=== PATIENT | male | born 1995 | race Hispanic/Latino ===

== ENCOUNTER 2020-06-15 06:03 | Emergency (ER) | payer BC ==
[~2020-06-15] VITALS: Ht 180.3 cm; Wt 113.4 kg
[2020-06-15] MEDS ORDERED: KETOROLAC TROMETHAMINE 30 MG/ML VIAL IV STA (06:12)
[2020-06-15] MEDS ORDERED: SODIUM CHLORIDE 0.9% 1000ML 1,000 ML IV STA (06:12)
[2020-06-15] MEDS ORDERED: ONDANSETRON HCL INJ 2MG/ML 2ML 2 MG/ML VIAL IV STA (06:12)
[2020-06-15 06:27] LABS: BASOPHILS % 0.2 % (0.0-1.0); EOSINOPHILS # (AUTO) 0.1 (0.0-0.4); EOSINOPHILS % 1.1 % (0.0-6.0); HEMATOCRIT 46.9 % (38.2-49.6); HEMOGLOBIN 15.7 g/dL (14.0-18.0); LYMPHOCYTES # (AUTO) 2.3 (1.0-3.2); LYMPHOCYTES % 19.4 % (18.0-39.1); MEAN CORPUSCULAR HGB CONC 33.5 g/dL (31-35); MEAN CORPUSCULAR VOLUME 86.7 fL (81-99); MONOCYTES # (AUTO) 0.7 (0.2-0.8); NEUTROPHILS # (AUTO) 8.5 (2.1-6.9); NEUTROPHILS % 72.8 % (38.7-80.0); PLATELET COUNT 299 x10e3/uL (140-360); RED BLOOD COUNT 5.41 x10e6/uL (4.3-5.7); RED CELL DISTRIBUTION WIDTH 12.8 % (11.7-14.4)
[2020-06-15 06:33] LABS: CLARITY,URINE CLEAR (CLEAR); COLOR,URINE YELLOW (YELLOW)
[2020-06-15 06:34] LABS: BILIRUBIN,URINE NEGATIVE (NEGATIVE); KETONES,URINE NEGATIVE (NEGATIVE); LEUKOCYTE ESTERASE ,URINE NEGATIVE (NEGATIVE); NITRITE,URINE NEGATIVE (NEGATIVE); PROTEIN,URINE DIPSTICK NEGATIVE (NEGATIVE); URINE UROBILINOGEN 0.2 mg/dL (0.2 - 1)
[2020-06-15 06:42] LABS: BACTERIA,URINE FEW /HPF; EPITHELIAL CELLS,URINE FEW /LPF; MUCUS,URINE FEW (RARE); WBC,URINE (MAN) 0-5 /HPF (0-5)
[2020-06-15 06:42] LABS: ANION GAP 11.6 mmol/L (8-16); BLOOD UREA NITROGEN 12 mg/dL (7-26); CARBON DIOXIDE 27 mmol/L (22-29); CHLORIDE 104 mmol/L (98-107); CREATININE, SERUM 0.87 mg/dL (0.72-1.25); POTASSIUM 3.6 mmol/L (3.5-5.1); SODIUM 139 mmol/L (136-145)
[2020-06-15 06:43] LABS: ALANINE AMINOTRANSFERASE 36 IU/L (0-55); ALBUMIN 4.5 g/dL (3.5-5.0); ALBUMIN/GLOBULIN RATIO 1.2 (0.8-2.0); ALKALINE PHOSPHATASE 91 IU/L (40-150); BUN/CREATININE RATIO 14 (6-25); CALCIUM 9.3 mg/dL (8.4-10.2); EST GLOMERULAR FILTRATION RATE > 60 ML/MIN (60-); GLUCOSE 100 mg/dL (74-118)
--- NOTE | 2020-06-15 06:52 | NUR ---
Report to LORRAINE Bey
--- NOTE | 2020-06-15 06:53 | Emergency Department Note ---
History of Present Illnes History of Present Illness Chief Complaint: Abdominal Complaints History of Present Illness This is a 25 year old male 25 Y/O MALE PT AAOX3 PRESENTS TO THE ER C/O INTERMITTENT LT SIDE PAIN FOR THE PAST X2 DAYS; PT ALSO REPORTS NAUSEA AND FEVER YESTERDAY; PT DENIES VOMITTING OR DIARRHEA; PT DENIES BURNING WITH URINATION OR DYSURIA. Historian: Patient Arrival Mode: Car Sba Underwriter Required: No Onset (how long ago): day(s) (2) Location: left flank Quality: sharp pain Radiation: Reports non-radiation Severity: severe Onset quality: sudden Timing of current episode: intermittent Progression: waxing and waning Chronicity: new Context: Denies recent illness Relieving factors: none Exacerbating factors: none Associated symptoms: Reports denies other symptoms Past Medical/Family History Physician Review I have reviewed the patient's past medical and family history. Any updates have been documented here. Past Medical History Recent Fever: Yes (SUBJECTIVE) Clinical Suspicion of Infectio: No New/Unexplained Change in Ment: No Past Medical History: Hypertension Past Surgical History: None Social History Smoking Cessation: Unknown if ever smoked Counseling Performed: No Alcohol Use: None Any Illegal Drug Use: No TB Exposure/Symptoms: No Physically hurt or threatened: No Family History Family history of heart diseas: No Other Any Pre-Existing Lines (PICC,: No Review of Systems Review of Systems Constitutional: Reports no symptoms EENTM: Reports no symptoms Cardiovascular: Reports no symptoms Respiratory: Reports no symptoms Gastrointestinal: Reports no symptoms Genitourinary: Reports as per HPI Musculoskeletal: Reports no symptoms Integumentary: Reports no symptoms Neurological: Reports no symptoms Psychological: Reports no symptoms Endocrine: Reports no symptoms Hematological/Lymphatic: Reports no symptoms Physical Exam Related Data Allergies: Coded Allergies: No Known Allergies (Unverified , 06/15/20) Triage Vital Signs Vital Signs Date Time Temp Pulse Resp B/P (MAP) Pulse Ox O2 Delivery O2 Flow Rate FiO2 06/15/20 06:07 98.9 90 18 152/105 100 Room Air Vital signs reviewed: Yes Physical Exam CONSTITUTIONAL Constitutional: Present well-developed, Present well-nourished HENT HENT: Present normocephalic, Present atraumatic, Present oropharynx clear/moist, Present nose normal HENT L/R: Present left ext ear normal, Present right ext ear normal EYES Eyes: Reports PERRL, Reports conjunctivae normal NECK Neck: Present ROM normal PULMONARY Pulmonary: Present effort normal, Present breath sounds normal CARDIOVASCULAR Cardiovascular: Present regular rhythm, Present heart sounds normal, Present capillary refill normal, Present normal rate GASTROINTESTINAL Abdominal: Present soft, Present nontender, Present bowel sounds normal; Absent left CVA tenderness, Absent right CVA tenderness GENITOURINARY Genitourinary: Present exam deferred SKIN Skin: Present warm, Present dry MUSCULOSKELETAL Musculoskeletal: Present ROM normal NEUROLOGICAL Neurological: Present alert, Present oriented x 3, Present no gross motor or sensory deficits PSYCHOLOGICAL Psychological: Present mood/affect normal, Present judgement normal Results Laboratory Result Diagram: 06/15/20 0611 06/15/20 0611 Laboratory Laboratory Tests Test 06/15/20 06:11 06/15/20 06:09 White Blood Count 11.72 x10e3/uL (4.8-10.8) Red Blood Count 5.41 x10e6/uL (4.3-5.7) Hemoglobin 15.7 g/dL (14.0-18.0) Hematocrit 46.9 % (38.2-49.6) Mean Corpuscular Volume 86.7 fL (81-99) Mean Corpuscular Hemoglobin 29.0 pg (28-32) Mean Corpuscular Hemoglobin Concent 33.5 g/dL (31-35) Red Cell Distribution Width 12.8 % (11.7-14.4) Platelet Count 299 x10e3/uL (140-360) Neutrophils (%) (Auto) 72.8 % (38.7-80.0) Lymphocytes (%) (Auto) 19.4 % (18.0-39.1) Monocytes (%) (Auto) 6.0 % (4.4-11.3) Eosinophils (%) (Auto) 1.1 % (0.0-6.0) Basophils (%) (Auto) 0.2 % (0.0-1.0) Neutrophils # (Auto) 8.5 (2.1-6.9) Lymphocytes # (Auto) 2.3 (1.0-3.2) Monocytes # (Auto) 0.7 (0.2-0.8) Eosinophils # (Auto) 0.1 (0.0-0.4) Basophils # (Auto) 0.0 (0.0-0.1) Absolute Immature Granulocyte (auto 0.06 x10e3/uL (0-0.1) Sodium Level 139 mmol/L (136-145) Potassium Level 3.6 mmol/L (3.5-5.1) Chloride Level 104 mmol/L (98-107) Carbon Dioxide Level 27 mmol/L (22-29) Anion Gap 11.6 mmol/L (8-16) Blood Urea Nitrogen 12 mg/dL (7-26) Creatinine 0.87 mg/dL (0.72-1.25) Estimat Glomerular Filtration Rate > 60 ML/MIN (60-) BUN/Creatinine Ratio 14 (6-25) Glucose Level 100 mg/dL (74-118) Calcium Level 9.3 mg/dL (8.4-10.2) Total Bilirubin 0.6 mg/dL (0.2-1.2) Aspartate Amino Transf (AST/SGOT) 18 IU/L (5-34) Alanine Aminotransferase (ALT/SGPT) 36 IU/L (0-55) Alkaline Phosphatase 91 IU/L (40-150) Total Protein 8.2 g/dL (6.5-8.1) Albumin 4.5 g/dL (3.5-5.0) Globulin 3.7 g/dL (2.3-3.5) Albumin/Globulin Ratio 1.2 (0.8-2.0) Urine Color Yellow (YELLOW) Urine Clarity Clear (CLEAR) Urine pH 5.5 (5 - 7) Urine Specific [place] >=1.030 (1.010-1.025) Urine Protein Negative (NEGATIVE) Urine Glucose (UA) Negative (NEGATIVE) Urine Ketones Negative (NEGATIVE) Urine Blood Moderate (NEGATIVE) Urine Nitrite Negative (NEGATIVE) Urine Bilirubin Negative (NEGATIVE) Urine Urobilinogen 0.2 mg/dL (0.2 - 1) Urine Leukocyte Esterase Negative (NEGATIVE) Urine RBC 11-20 /HPF (0-5) Urine WBC 0-5 /HPF (0-5) Urine Epithelial Cells Few /LPF (NONE) Urine Bacteria Few /HPF (NONE) Urine Mucus Few (RARE) Lab results reviewed: Yes Imaging Imaging results reviewed: Yes Assessment & Plan Medical Decision Making MDM left flank pain - CBC, CHEM, UA, CT ABD/PELVIS - R/O KIDNEY STONE, UTI, PYELONEPHRITIS, MUSCULOSKELETAL PAIN, MASS. Reassessment Reassessment dc home, flomax, toradol, zofran, tyl #3. Strain all urine, push po fluids. F/U Dr Curtis, Dr Prasad Assessment & Plan Final Impression: (1) Ureterolithiasis Depart Disposition: HOME, SELF-CARE Last Vital Signs Date Time Temp Pulse Resp B/P (MAP) Pulse Ox O2 Delivery O2 Flow Rate FiO2 06/15/20 06:39 76 20 146/85 99 Room Air 06/15/20 06:07 98.9 Medications in the ED Ondansetron HCl 4 mg ONCE STAT IV Last administered on 06/15/20at 06:30; Admin Dose 4 MG; Start 06/15/20 at 06:12; Stop 06/15/20 at 06:17; Status DC Ketorolac Tromethamine 30 mg ONCE STAT IV Last administered on 06/15/20at 06:30; Admin Dose 30 MG; Start 06/15/20 at 06:12; Stop 06/15/20 at 06:17; Status DC Sodium Chloride 1,000 ml @ 0 mls/hr Q0M STAT IV Last administered on 06/15/20at 06:30; Admin Dose 999 MLS/HR; Start 06/15/20 at 06:12; Stop 06/15/20 at 06:15; Status DC LIBORIO JENSEN MD Jun 15, 2020 06:52
--- NOTE | 2020-06-15 07:39 | Diagnostic Imaging Report ---
EXAM: CT Abdomen and Pelvis WITHOUT contrast INDICATION: Left-sided abdominal pain, query kidney stone. COMPARISON: None. TECHNIQUE: Abdomen and pelvis were scanned utilizing a multidetector helical scanner from the lung base to the pubic symphysis without administration of IV contrast. Absence of intravenous contrast decreases sensitivity for detection of focal lesions and vascular pathology. Coronal and sagittal reformations were obtained. Stone protocol is performed. IV CONTRAST: None. ORAL CONTRAST: None. RADIATION DOSE: Total DLP: 774 mGy*cm Estimated effective dose: (DLP x 0.015 x size factor) mSv COMPLICATIONS: None FINDINGS: LINES and TUBES: None. LOWER THORAX: Unremarkable HEPATOBILIARY: No focal hepatic lesions. No biliary ductal dilation. GALLBLADDER: No radio-opaque stones or sludge. No wall thickening. SPLEEN: No splenomegaly. PANCREAS: No focal masses or ductal dilatation. ADRENALS: No adrenal nodules KIDNEYS/URETERS: There is a 3 mm left proximal ureteral stone with minimal left hydronephrosis and trace perinephric stranding. GI TRACT: No abnormal distention, wall thickening, or evidence of bowel obstruction. Appendix is normal. PELVIC ORGANS/BLADDER: Bladder is partially decompressed. LYMPH NODES: No lymphadenopathy. VESSELS: Unremarkable. PERITONEUM / RETROPERITONEUM: No free air or fluid. BONES: Unremarkable. SOFT TISSUES: Bilateral fat-containing inguinal hernias. IMPRESSION: A 3 mm proximal left ureteral stone with minimal left hydronephrosis. Signed by: Dr. Sarita Alvarado MD on 06/15/2020 7:36 AM
[2020-06-15 07:45] VITALS: BP 137/78
== END 2020-06-15 07:59 | disposition home or self-care (01) ==
LOC: ER 06:14
DX: N13.2 Hydronephrosis with renal and ureteral calculous obstruction (principal); M54.5 Low back pain; R50.9 Fever, unspecified; R11.0 Nausea; I10 Essential (primary) hypertension
CPT/HCPCS: 36415; 74176; 80053; 81001; 85025; 87086; 99284; J1885; J2405; J7030

== ENCOUNTER 2020-06-16 12:04 | Emergency (ER) | payer BC ==
[~2020-06-16] VITALS: Ht 180.3 cm; Wt 113.4 kg
--- OUTSIDE RECORDS SUMMARY | 2020-06-16 12:38 | XMS REPORT | Continuity of Care Document ---
Author Author [facility] Organization [facility] Address [address] [place] [address] Phone Unavailable Care Team Providers Care Desk Assistant Name Role Phone NO, PCP PCP Unavailable Celeste JENSEN Attphys Unavailable Payers Payer Name Policy Type Policy Number Effective Date Expiration Date S joseph [employer] Ppo [id number] [facility] I [facility] Problems Condition Name Condition Details Condition Category Status Onset Date Resolution Date Last Treatment Date Treating Clinician Comments Source Calculus of ureter Problem Active [facility] Allergies, Adverse Reactions, Alerts This patient has no known allergies or adverse reactions. Social History Social Habit Start Date Stop Date Quantity Comments Source Sex Assigned At 1995 00:00:00 1995 00:00:00 Male [facility] Medications This patient has no known medications. Vital Signs Vital Name Observation Time Observation Value Comments Source Body Temperature 2020-06-15 07:45:00 98.0 [degF] [facility] Weight 2020-06-15 06:07:00 250 [lb_av] [facility] BMI (Body Mass Index) 2020-06-15 06:07:00 34.9 kg/m2 [facility] Procedures Procedure Date / Time Performed Performing Clinician Callum mcdonald CT of abdomen and pelvis without contrast 2020-06-15 00:00:00 [facility] Plan of Care Planned Activity Planned Date Details Comments Source Instructions Kidney Stones [facility] Encounters Start Date/Time End Date/Time Encounter Type Admission Type Attendi [facility] Care Department Encounter ID Source 2020-06-15 06:14:00 2020-06-15 07:59:00 Departed Emergency Room 1 LIBORIO JENSEN [facility] [id number] [facility] Results Test Description Test Time Test Comments Results Result Comments Source CT ABDOMEN/PELVIS WO 2020-06-15 07:30:00 [facility] [address] [address] Patient Name: SKYLAR NUÑEZ JR MR #: [id number] : 1995 Age/Sex: 25/M Req #: [id number] Adm Physician: Ordered by: LIBORIO JENSEN MD Report #: [id number] Location: ER Room/Bed: Procedure: [id number] CT/CT ABDOMEN/PELVIS WO Exam Date: 06/15/20 Exam Time: 0650 REPORT STATUS: Signed EXAM: CT Abdomen and Pelvis WITHOUT contrast INDICATION: Left-sided abdominal pain, query kidney stone. COMPARISON: None. TECHNIQUE: Abdomen and pelvis were scanned utilizing a multidetector helical scanner from the lung base to the pubic symphysis without administration of IV contrast. Absence of intravenous contrast decreases sensitivity for detection of focal lesions and vascular pathology. Coronal and sagittal reformations were obtained. Stone protocol is performed. IV CONTRAST: None. ORAL CONTRAST: None. RADIATION DOSE: Total DLP: 774 mGy*cm Estimated effective dose: (DLP x 0.015 x size factor) mSv COMPLICATIONS: None FINDINGS: LINES and TUBES: None. LOWER THORAX: Unremarkable HEPATOBILIARY: No focal hepatic lesions. No biliary ductal dilation. GALLBLADDER: No radio-opaque stones or sludge. No wall thickening. SPLEEN: No splenomegaly. PANCREAS: No focal masses or ductal dilatation. ADRENALS: No adrenal nodules KIDNEYS/URETERS: There is a 3 mm left proximal ureteral stone with minimal left hydronephrosis and trace perinephric stranding. GI TRACT: No abnormal distention, wall thickening, or evidence of bowel obstruction. Appendix is normal. PELVIC ORGANS/BLADDER: Bladder is partially decompressed. LYMPH NODES: No lymphadenopathy. VESSELS: Unremarkable. PERITONEUM / RETROPERITONEUM: No free air or fluid. BONES: Unremarkable. SOFT TISSUES: Bilateral fat-containing inguinal hernias. IMPRESSION: A 3 mm proximal left ureteral stone with minimal left hydronephrosis. Signed by: Dr. Kallie Cross MD on 06/15/2020 7:36 AM Dictated By: KALLIE CROSS MD 5 Transcribed By: AMAIRANI on 06/15/20735 COPY TO: LIBORIO JENSEN MD Blood leukocytes automated count (number/volume) 2020-06-15 06:11:00 Test Item White Blood Count (test code = 6690-2) 11.72 4.8-10.8 [facility] automated count (number/volume)2020-06-15 06:11:00* Test Item Value Reference Range Interpretation Comments Red Blood Count (test code = 789-8) 5.41 4.3-5.7 [facility] hemoglobin measurement (moles/volume)2020-06-15 06:11:00* Test Item Value Reference Range Interpretation Comments Hemoglobin (test code = 60109-0) 15.7 14.0-18.0 [facility] CenterAutomated blood hematocrit (volume fraction)2020-06-15 06:11:00* Test Item Value Reference Range Interpretation Comments Hematocrit (test code = 4544-3) 46.9 38.2-49.6 [facility] CenterAutomated erythrocyte mean corpuscular [id number] 06:11:00* Test Item Value Reference Range Interpretation Comments Mean Corpuscular Volume (test code = 787-2) 86.7 81-99 [facility] CenterAutomated erythrocyte mean corpuscular hemoglobin (mass per erythrocyte)2020-06-15 06:11:00* Test Item Value Reference Range Interpretation Comments Mean Corpuscular Hemoglobin (test code = 785-6) 29.0 28-32 [facility] CenterAutomated erythrocyte mean corpuscular hemoglobin concentration measurement (mass/volume)2020-06-15 06:11:00* Test Item Value Reference Range Interpretation Comments Mean Corpuscular Hemoglobin Concent (test code = 786-4) 33.5 31-35 [facility] CenterRDW HbeMy-Esp9591-18-27 06:11:00* Test Item Value Reference Range Interpretation Comments Red Cell Distribution Width (test code = 10622-7) 12.8 11.7 -14.4 [facility] CenterAutomated blood platelet count (count/volume)2020-06-15 06:11:00* Test Item Value Reference Range Interpretation Comments Platelet Count (test code = 777-3) 299 140-360 [facility] CenterAutomated blood segmented neutrophil count as percentage of total apcebhvjam0685-57-09 06:11:00* Test Item Value Reference Range Interpretation Comments Neutrophils (%) (Auto) (test code = 48150-4) 72.8 38.7-80.0 [facility] CenterAutomated blood lymphocyte count as percentage ot total rhtfuqoibz4969-10-57 06:11:00* Test Item Value Reference Range Interpretation Comments Lymphocytes (%) (Auto) (test code = 736-9) 19.4 18.0-39.1 [facility] CenterAutomated blood monocyte count as percentage of total gdmbknivcb9926-91-77 06:11:00* Test Item Value Reference Range Interpretation Comments Monocytes (%) (Auto) (test code = 5905-5) 6.0 4.4-11.3 [facility] CenterAutomated blood eosinophil count as percentage of total wmzzljowwy8597-50-96 06:11:00* Test Item Value Reference Range Interpretation Comments Eosinophils (%) (Auto) (test code = 713-8) 1.1 0.0-6.0 [facility] CenterAutomated blood basophil count as percentage of total ngdwjecwyy0629-90-05 06:11:00* Test Item Value Reference Range Interpretation Comments Basophils (%) (Auto) (test code = 706-2) 0.2 0.0-1.0 [facility] CenterFluoroscopic procedure less than one hour xrxdxlxa2734-24-95 06:11:00* Test Item Value Reference Range Interpretation Comments IM GRANULOCYTES % (test code = IM GRANULOCYTES %) 0.5 0.0- 1.0 [facility] CenterAutomated blood neutrophil count 2020-06-15 06:11:00* Test Item Value Reference Range Interpretation Comments Neutrophils # (Auto) (test code = 751-8) 8.5 2.1-6.9 [facility] CenterBlood lymphocytes count (number/volume) 2020-06-15 06:11:00* Test Item Value Reference Range Interpretation Comments Lymphocytes # (Auto) (test code = 83019-0) 2.3 1.0-3.2 [facility] monocytes automated count (number/volume)2020-06-15 06:11:00* Test Item Value Reference Range Interpretation Comments Monocytes # (Auto) (test code = 742-7) 0.7 0.2-0.8 [facility] CenterAutomated blood eosinophil count 2020-06-15 06:11:00* Test Item Value Reference Range Interpretation Comments Eosinophils # (Auto) (test code = 711-2) 0.1 0.0-0.4 [facility] CenterAutomated blood basophil count (count/volume)2020-06-15 06:11:00* Test Item Value Reference Range Interpretation Comments Basophils # (Auto) (test code = 704-7) 0.0 0.0-0.1 [facility] CenterFluoroscopic procedure less than one hour kjhnfrxe4205-29-95 06:11:00* Test Item Value Reference Range Interpretation Comments Absolute Immature Granulocyte (auto (antelmo t code = Absolute Immature Granulocyte (auto) 0.06 0-0.1 [facility] sodium measurement (moles/volume)2020-06-15 06:11:00* Test Item Value Reference Range Interpretation Comments Sodium Level (test code = 2951-2) 139 136-145 [facility] Hospitalerum or plasma potassium measurement (moles/volume)2020-06-15 06:11:00* Test Item Value Reference Range Interpretation Comments Potassium Level (test code = 2823-3) 3.6 3.5-5.1 [facility]erum or plasma chloride measurement (moles/volume)2020-06-15 06:11:00* Test Item Value Reference Range Interpretation Comments Chloride Level (test code = 2075-0) 104 98-107 [facility] Hospitalerum or plasma carbon dioxide, total measurement (moles/volume)2020-06-15 06:11:00* Test Item Value Reference Range Interpretation Comments Carbon Dioxide Level (test code = 2028-9) 27 22-29 [facility] Hospitalerum or plasma anion [id number] 06:11:00* Test Item Value Reference Range Interpretation Comments Anion Gap (test code = 90741-5) 11.6 8-16 [facility]erum or plasma urea nitrogen measurement (mass/volume)2020-06-15 06:11:00* Test Item Value Reference Range Interpretation Comments Blood Urea Nitrogen (test code = 3094-0) 12 7-26 [facility] Hospitalerum or plasma creatinine measurement (mass/volume)2020-06-15 06:11:00* Test Item Value Reference Range Interpretation Comments Creatinine (test code = 2160-0) 0.87 0.72-1.25 [facility] Hospitalerum or plasma urea nitrogen/creatinine mass qgohh1757-15-18 06:11:00* Test Item Value Reference Range Interpretation Comments BUN/Creatinine Ratio (test code = 3097-3) 14 6-25 [facility] CenterEstimated glomerular filtration rate (GFR) bliifuwtnjnat5081-94-78 06:11:00* Test Item Value Reference Range Interpretation Comments Estimat Glomerular Filtration Rate (test code = 942925615) > 60 >60 Ranges were taken from the National Kidney Disease Education Program and the [facility] literature.Reference ranges:60 or greater: Rrlzzl58-09 ( for 3 consecutive months): Chronic kidney disease 15 or less: Kidney failureDell Children's Medical CenterGlucose vcoxtdshxpf9409-05-89 06:11:00* Test Item Value Reference Range Interpretation Comments Glucose Level (test code = VZF5337) 100 74-118 [facility] Hospitalerum or plasma calcium measurement (mass/volume)2020-06-15 06:11:00* Test Item Value Reference Range Interpretation Comments Calcium Level (test code = 60592-0) 9.3 8.4-10.2 [facility] Hospitalerum or plasma total bilirubin measurement (mass/volume)2020-06-15 06:11:00* Test Item Value Reference Range Interpretation Comments Total Bilirubin (test code = 1975-2) 0.6 0.2-1.2 [facility] CenterFluoroscopic procedure less than one hour qfzhkywo0191-80-32 06:11:00* Test Item Value Reference Range Interpretation Comments Aspartate Amino Transf (AST/SGOT) (test code = Aspartate Amino Transf (AST/SGOT)) 18 5-34 [facility] Hospitalerum or plasma alanine aminotransferase measurement (enzymatic activity/volume)2020-06-15 06:11:00* Test Item Value Reference Range Interpretation Comments Alanine Aminotransferase (ALT/SGPT) (test code = 1742-6) 36 0-55 [facility] Hospitalerum or plasma protein measurement (mass/volume)2020-06-15 06:11:00* Test Item Value Reference Range Interpretation Comments Total Protein (test code = 2885-2) 8.2 6.5-8.1 [facility] Hospitalerum or plasma albumin measurement (mass/volume)2020-06-15 06:11:00* Test Item Value Reference Range Interpretation Comments Albumin (test code = 1751-7) 4.5 3.5-5.0 [facility] CenterPlasma globulin measurement (mass/volume) 2020-06-15 06:11:00* Test Item Value Reference Range Interpretation Comments Globulin (test code = 95593-6) 3.7 2.3-3.5 [facility] Hospitalerum or plasma albumin/globulin mass qmbqp7547-31-06 06:11:00* Test Item Value Reference Range Interpretation Comments Albumin/Globulin Ratio (test code = 1759-0) 1.2 0.8-2.0 [facility] Hospitalerum or plasma alkaline phosphatase measurement (enzymatic activity/volume)2020-06-15 06:11:00* Test Item Value Reference Range Interpretation Comments Alkaline Phosphatase (test code = 6768-6) 91 40-150 [facility] CenterUrine color ygfpnvewraayu2588-37-20 06:09:00* Test Item Value Reference Range Interpretation Comments Urine Color (test code = 5778-6) YELLOW YELLOW [facility] CenterUrine yyteutg8388-18-06 06:09:00* Test Item Value Reference Range Interpretation Comments Urine Clarity (test code = 33374-4) CLEAR CLEAR [facility] Hospitalpecific gravity of Urine by Test strip 2020-06-15 06:09:00* Test Item Value Reference Range Interpretation Comments Urine Specific [place] (test code = 5811-5) >=1.030 1.010-1.02 5 [facility] CenterUrine pH measurement by automated test [id number] 06:09:00* Test Item Value Reference Range Interpretation Comments Urine pH (test code = 13974-9) 5.5 5-7 [facility] CenterUrine leukocyte esterase detection by bvxnjmvq8388-37-10 06:09:00* Test Item Value Reference Range Interpretation Comments Urine Leukocyte Esterase (test code = 5799-2) NEGATIVE NEGATIVE [facility] CenterUrine nitrite vtyjcgnts9128-76-37 06:09:00* Test Item Value Reference Range Interpretation Comments Urine Nitrite (test code = 92265-1) NEGATIVE NEGATIVE [facility] CenterUrine protein measurement by test strip (mass/volume)2020-06-15 06:09:00* Test Item Value Reference Range Interpretation Comments Urine Protein (test code = 5804-0) NEGATIVE NEGATIVE [facility] CenterUrine glucose bplaclpkk2409-76-96 06:09:00* Test Item Value Reference Range Interpretation Comments Urine Glucose (UA) (test code = 2349-9) NEGATIVE NEGATIVE [facility] CenterUrine ketones detection by automated test dytfu8871-84-25 06:09:00* Test Item Value Reference Range Interpretation Comments Urine Ketones (test code = 74019-7) NEGATIVE NEGATIVE [facility] CenterUrine urobilinogen measurement by test strip (mass/volume)2020-06-15 06:09:00* Test Item Value Reference Range Interpretation Comments Urine Urobilinogen (test code = 37100-9) 0.2 0.2-1 [facility] CenterUrine total bilirubin measurement (mass/volume)2020-06-15 06:09:00* Test Item Value Reference Range Interpretation Comments Urine Bilirubin (test code = 1978-6) NEGATIVE NEGATIVE [facility] CenterUrine erythrocytes zrsuvnzaq4284-59-66 06:09:00* Test Item Value Reference Range Interpretation Comments Urine Blood (test code = 75914-0) MODERATE NEGATIVE [facility] CenterAutomated urine sediment leukocyte count by microscopy (number/high power field)2020-06-15 06:09:00* Test Item Value Reference Range Interpretation Comments Urine WBC (test code = 5821-4) 0-5 0-5 [facility] CenterErythrocytes detection in urine sediment by light uwvfvzavdf6251-14-88 06:09:00* Test Item Value Reference Range Interpretation Comments Urine RBC (test code = 37641-2) 11-20 0-5 [facility] CenterBacteria detection in urine sediment by light rhdtbnrqjd0070-95-19 06:09:00* Test Item Value Reference Range Interpretation Comments Urine Bacteria (test code = 93219-3) FEW NONE [facility] CenterEpithelial cells detection in urine sediment by light zqhjveqjyg3372-08-64 06:09:00* Test Item Value Reference Range Interpretation Comments Urine Epithelial Cells (test code = 82163-7) FEW NONE [facility] CenterMucus detection in urine sediment by light xltkhluyoo0806-66-24 06:09:00* Test Item Value Reference Range Interpretation Comments Urine Mucus (test code = 8247-9) FEW RARE [facility]
--- NOTE | 2020-06-16 12:53 | Emergency Department Note ---
History of Present Illnes History of Present Illness Chief Complaint: Flank Pain History of Present Illness This is a 25 year old male Chief Complaint Comment PATIENT IN FROM HOME WITH COMPLAINTS OF LEFT FLANK PAIN OFF AND ON SINCE THIS MORNING; STATES WAS DIAGNOSED WITH KIDNEY STONES YESTERDAY BUT STATES THAT THE PAIN CAME BACK EVEN AFTER TAKING THE MEDICATIONS. Historian: Patient Arrival Mode: Car Severity: moderate Duration (how long): hour(s) (5) Progression: resolved Chronicity: new Context: Denies recent illness, Denies recent surgery Exacerbating factors: none Associated symptoms: Reports denies other symptoms Treatments prior to arrival: none Past Medical/Family History Physician Review I have reviewed the patient's past medical and family history. Any updates have been documented here. Past Medical History Recent Fever: No Clinical Suspicion of Infectio: No New/Unexplained Change in Ment: No Past Medical History: Hypertension Past Surgical History: None Review of Systems Review of Systems Constitutional: Reports no symptoms EENTM: Reports no symptoms Cardiovascular: Reports no symptoms Respiratory: Reports no symptoms Gastrointestinal: Reports as per HPI, Reports other (L flank pain) Genitourinary: Reports no symptoms Musculoskeletal: Reports no symptoms Integumentary: Reports no symptoms Neurological: Reports no symptoms Psychological: Reports no symptoms Endocrine: Reports no symptoms Hematological/Lymphatic: Reports no symptoms Physical Exam Related Data Allergies: Coded Allergies: No Known Allergies (Unverified , 06/16/20) Triage Vital Signs Vital Signs Date Time Temp Pulse Resp B/P (MAP) Pulse Ox O2 Delivery O2 Flow Rate FiO2 06/16/20 12:17 97.7 72 18 157/96 100 Room Air Vital signs reviewed: Yes Physical Exam CONSTITUTIONAL Constitutional: Present well-developed, Present well-nourished HENT HENT: Present normocephalic, Present atraumatic, Present oropharynx clear/moist, Present nose normal HENT L/R: Present left ext ear normal, Present right ext ear normal EYES Eyes: Reports PERRL, Reports conjunctivae normal NECK Neck: Present ROM normal PULMONARY Pulmonary: Present effort normal, Present breath sounds normal CARDIOVASCULAR Cardiovascular: Present regular rhythm, Present heart sounds normal, Present capillary refill normal, Present normal rate GASTROINTESTINAL Abdominal: Present soft, Present nontender, Present bowel sounds normal GENITOURINARY Genitourinary: Present exam deferred SKIN Skin: Present warm, Present dry MUSCULOSKELETAL Musculoskeletal: Present ROM normal NEUROLOGICAL Neurological: Present alert, Present oriented x 3, Present no gross motor or sensory deficits PSYCHOLOGICAL Psychological: Present mood/affect normal, Present judgement normal Assessment & Plan Medical Decision Making MDM 25-year-old male with past medical history of recently diagnosed kidney stone presents for brief episode of sharp left-sided flank pain. He states the pain has since resolved he is currently asymptomatic. Diagnosis favors transit of his known 3 mm stone. I discussed expected disease time course and management will continue take his Toradol and Tylenol 3. A work note was written for him and he is appropriate for discharge. Reassessment Reassessment time: 13:45 Reassessment Well appearing, NAD Assessment & Plan Final Impression: (1) Ureterolithiasis Depart Disposition: HOME, SELF-CARE Last Vital Signs Date Time Temp Pulse Resp B/P (MAP) Pulse Ox O2 Delivery O2 Flow Rate FiO2 06/16/20 12:17 97.7 72 18 157/96 100 Room Air ALMA HOFFMAN MD Jun 16, 2020 12:53
[2020-06-16 13:46] VITALS: BP 143/88
== END 2020-06-16 13:49 | disposition home or self-care (01) ==
LOC: ER 12:35
DX: N13.2 Hydronephrosis with renal and ureteral calculous obstruction (principal); M54.5 Low back pain; R10.9 Unspecified abdominal pain; I10 Essential (primary) hypertension
CPT/HCPCS: 99282